=== PATIENT | female | born 1985 | race Caucasian/White ===

== ENCOUNTER 2025-07-18 12:56 | Emergency (ER) | payer MEDICAID ==
[~2025-07-18] VITALS: Ht 165.1 cm; Wt 50.0 kg
[2025-07-18] MEDS: ondansetron/PF 4mg/2ml inj IV ONE (14:01)
[2025-07-18] MEDS: normal saline 1000ML IV soln IVB ONE ×2 (14:01→14:32)
--- NOTE | 2025-07-18 14:23 | Physician Documentation ---
History of Present Illness Chief Complaint: Abdominal Pain w/vomiting Stated Complaint: VOMITING Time Seen by MD: 14:06 OK to notify your PCP?: Yes Source: patient Mode of Arrival: POV, Ambulatory Exam Limitations: no limitations HPI This is a 31-year-old female who comes in complaining of diffuse abdominal pain and two days of vomiting. She denies diarrhea. She denies one constant area of pain and states the pain comes and goes with the vomiting and retching. The patient states she has never had an episode like this in the past. She does admit to daily marijuana use. She denies . Medication Reconciliation Allergies: Coded Allergies: No Known Allergies (Unverified , 07/18/25) Physical Exam Vital Signs: Temperature: 97.8, Source: Temporal, Heart Rate: 54, Respiratory Rate: 7, BP: 124/87, Pulse Oximetry: 98, Weight: 50.000 Pulse Oximetry Reflects: adequate oxygenation General Appearance: alert, WD/WN, moderate distress (The patient is retching and writhing in pain. She appears very uncomfortable.) Respiratory: lungs clear, normal breath sounds, no respiratory distress Gastrointestinal Inspection of the abdomen no obvious distention. The patient has a diffusely tender anywhere I palpate. No rigidity rebound or guarding. Negative Andrew's sign. There is tenderness to palpation of the right lower quadrant but negative psoas or obturator signs. Neurologic: oriented x4, regional forester II-XII nml as tested Progress Results/Orders Results/Orders Orders - ROBERTO CARLOS EDUARDO Haloperidol Lact. (Haldol) (07/18/25 14:20) Medications Received in ER Medications (Trade) Dose Ordered Sig/Robinson Route PRN Reason Start Time Stop Time Status Last Admin Dose Admin (Zofran 4mg/2ml vial) 4 mg ONCE ONCE IV 07/18/25 14:00 07/18/25 14:01 DC 07/18/25 14:01 4 MG (0.9% sodium chloride (NS) 1000ml IV soln) 1,000 ml ONCE ONCE IVB 07/18/25 14:00 07/18/25 14:01 DC 07/18/25 14:01 1,000 ML Vital Signs 07/18/25 07/18/25 13:12 14:08 Temp 97.8 Pulse 54 Resp 18 7 B/P (MAP) 124/87 Pulse Ox 98 Medical Decision Making Additional information obtaine: N/A Findings The patient has workup was all benign. Her potassium was low at 2.9 which is undoubtedly secondary to her cyclic vomiting. I will place that is with the w ith the IV and p.o. potassium. I highly suspect the patient has symptoms are secondary to cannabinoid hyperemesis syndrome I gave the patient Haldol 5 mg IM and IV Dilaudid for pain. The patient slept comfortably. She woke up feeling much better. I discussed the negative findings with the ear and also with the suspicion of cannabinoid hyperemesis syndrome. I will send her home with a prescription for Reglan as Zoshakira typically isn't affected against this diagnosis. I did discuss marijuana cessation and supplement diet. Differential Dx:Considerations: Cholelithasis, Esophageal rupture, Esophagitis, Gastritis/PUD, Gastroenteritis, Urinary tract infection Additional Comments Cyclic vomiting. Cannabinoid hyperemesis syndrome. Gastritis. gastroparesis. Rule out acute abdomen. Departure Disposition: HOME / SELF CARE / HOMELESS Impression: Primary Impression: Hypokalemia Additional Impression: Cannabinoid hyperemesis syndrome Condition: Improved Discharge Instructions: Cannabinoid Hyperemesis Syndrome Additional Instructions: The strongly states he stopped smoking marijuana. Even if you stopped you can have these symptoms for over a month. Start a clear liquid supplement diet. Take the prescribed medication as needed for nausea. Follow up with the primary care physician for recheck in the next one or two days and return to the ER for any worsening or concerning symptoms. Referrals: NO PRIMARY CARE PROVIDER (PCP) Prescriptions Metoclopramide Hcl* (Reglan*) 5 Mg Tablet 1 TAB PO Q6H PRN for nausea/vomiting, #20 TAB Prov: ROBERTO CARLOS EDUARDO 07/18/25 Signature Scribe Signature: No scribe Attestation: The note accurately reflects work and decisions made by me.Roberto Carlos FERNANDES 07/18/25 17:35 ROBERTO CARLOS EDUARDO Jul 18, 2025 14:23
[2025-07-18] MEDS: haloperidol lactate 5mg/ml inj IM ONE (14:24)
[2025-07-18 14:29] LABS: MEAN PLATELET VOLUME 8.2 FL (7.4-10.4); RED CELL DISTRIBUTION WIDTH 13.6 % (11.5-14.5)
[2025-07-18] MEDS ORDERED: iohexol 300mg/ml 100ml inj. ONE (14:46)
[2025-07-18 14:57] LABS: CREATININE 0.99 MG/DL (0.40-0.90); TOTAL CARBON DIOXIDE 32.4 MMOL/L (24-32); eCRCL 61 ML/MIN; eGFR 63 ML/MIN
--- NOTE | 2025-07-18 15:57 | RADIOLOGY REPORT ---
EXAM: CT CT ABDOMEN PELVIS HISTORY: Severe diffuse abdominal pain. COMPARISON STUDY: None TECHNIQUE: A digital football scout image was obtained. During the uneventful, intravenous administration of contrast material, multislice data acquisition was obtained through the abdomen and pelvis. The data set was subsequently reconstructed into multiplanar reformats. RADIATION DOSE: CTDI vol 5.99 mGy. DLP 288.3 mGy.cm FINDINGS: Lungs: The lung bases are clear. Liver: Unremarkable. Spleen: Unremarkable. Pancreas: Unremarkable. Gallbladder: Mild periportal edema. Adrenals: Unremarkable Kidneys: Unremarkable. Pelvic Viscera: Unremarkable. Vasculature: Unremarkable. Retroperitoneum: Unremarkable. Bowel: No bowel obstruction. Portions of the bowel are decompressed, limiting assessment. The appendix is normal. Musculoskeletal: Chronic appearing compression of the superior endplate of T12 with associated Schmorl's node. Soft tissues: Unremarkable IMPRESSION: 1. No acute abdominopelvic abnormality. 2. Incidental findings as detailed.
[2025-07-18] MEDS: potassium Cl 20mEq/100mL bag 100 ML IV STA (16:21)
[2025-07-18] MEDS: potassium Cl 20 mEq SR tablet PO STA (16:22)
[2025-07-18 17:05] LABS: LEUKOCYTE ESTERASE ,URINE NEGATIVE (Neg); NITRITES, URINE NEGATIVE (Neg); OCCULT BLOOD,URINE SMALL (Neg)
[2025-07-18 17:21] LABS: UA COLLECTION TYPE NON-SPECIFIED
[2025-07-18 17:23] LABS: SQUAMOUS EPITHELIAL CELL,UR MODERATE /LPF (FEW); URIC ACID CRYSTALS FEW /HPF (NEGATIVE)
[2025-07-18] MEDS ORDERED: METO5TAB98 PO (17:34)
[2025-07-18 18:18] VITALS: BP 128/78; PULSE 78; RESP 14; TEMP 98.4; O2SAT 99
== END 2025-07-18 18:26 | disposition home or self-care (01) ==
LOC: ER 12:57
DX: E87.6 Hypokalemia (principal); R11.16 Cannabis hyperemesis syndrome; F12.90 Cannabis use, unspecified, uncomplicated
CPT/HCPCS: 36415; 74177; 80053; 81001; 83690; 84702; 85025; 96361; 96365; 96372; 96375; 99285; J1171; J1630; J2405; J3480; J7030; Q9967